=== PATIENT | male | born 1960 | race Caucasian/White ===

== ENCOUNTER 2024-08-31 02:58 | Outpatient (CLI) | payer MEDICARE, OTHER, SELFPAY ==
--- NOTE | 2024-08-31 08:00 | DI.RAD_ITS ---
Exam(s) XR ANKLE RT COMPLETE EXAM: XR ANKLE RT COMPLETE CLINICAL HISTORY: Right ankle pain,m25.571. TECHNIQUE: 2D digital imaging was performed. Three views. COMPARISON: CR XR FOOT COMPLETE MIN 3V RT from 12/19/2023 FINDINGS: BONES: There is a nondisplaced fracture through the lateral talar dome without significant displacement. There is an underlying lucency. The remainder of talar dome is unremarkable. There is additional lucency in the anterior tibial plafond tear this appears chronic. No bony destructive lesion is seen. JOINTS: The ankle mortise is normally aligned. No joint space narrowing. SOFT TISSUE: Marked soft tissue swelling of the lower extremity, greatest around the malleoli. Mild vascular calcification. Calcification in the distal Achilles tendon. IMPRESSION: Nondisplaced osteochondral fracture at the lateral talar dome. DATA REPOSITORY: RADIATION DOSE DELIVERED:
--- NOTE | 2024-08-31 08:00 | DI.RAD_ITS ---
Exam(s) XR FOOT RT COMPLETE EXAM: XR FOOT RT COMPLETE CLINICAL HISTORY: Right foot pain,m79.671. TECHNIQUE: 2D digital imaging was performed. Three views. COMPARISON: CR XR FOOT COMPLETE MIN 3V RT from 12/19/2023 FINDINGS: BONES: No acute fracture is present. No bony destructive lesion is seen. Small spur at the Achilles insertion. JOINTS: No dislocation present. There are mild degenerative changes of the 1st MTP joint. SOFT TISSUE: Normal edema of the ankle and foot. IMPRESSION: Mild degenerative changes. DATA REPOSITORY: RADIATION DOSE DELIVERED:
== END 2024-08-31 03:18 ==
PROVIDERS: PCP Family Medicine; Visit Provider Podiatrist
DX: S92.141A Displaced dome fracture of right talus, initial encounter for closed fracture (principal); W11.XXXA Fall on and from ladder, initial encounter; I87.2 Venous insufficiency (chronic) (peripheral); R60.0 Localized edema; I83.93 Asymptomatic varicose veins of bilateral lower extremities; L65.9 Nonscarring hair loss, unspecified
CPT/HCPCS: 29580; 99204; 29850; 73610; 73630

== ENCOUNTER → 2024-09-22 15:07 | Outpatient (BNVA) | payer MEDICARE, OTHER, SELFPAY | PROVIDERS: PCP Family Medicine; Referring Provider Family Medicine; Visit Provider Podiatrist | DX: M25.571 Pain in right ankle and joints of right foot (principal); M89.8X7 Other specified disorders of bone, ankle and foot; M94.8X7 Other specified disorders of cartilage, ankle and foot; I87.2 Venous insufficiency (chronic) (peripheral); R60.0 Localized edema | CPT/HCPCS: 99213 ==

== ENCOUNTER → 2024-10-20 14:19 | Outpatient (BNVA) | payer MEDICARE, OTHER, SELFPAY | PROVIDERS: PCP Family Medicine; Referring Provider Family Medicine; Visit Provider Podiatrist | DX: M25.571 Pain in right ankle and joints of right foot (principal); M89.8X7 Other specified disorders of bone, ankle and foot; M24.171 Other articular cartilage disorders, right ankle; I87.2 Venous insufficiency (chronic) (peripheral); R60.0 Localized edema | CPT/HCPCS: 99213 ==

== ENCOUNTER → 2024-11-14 14:32 | Outpatient (BNVA) | payer MEDICARE, OTHER, SELFPAY | PROVIDERS: PCP Family Medicine; Referring Provider Family Medicine; Visit Provider Podiatrist | DX: L60.0 Ingrowing nail (principal); M25.571 Pain in right ankle and joints of right foot; I87.2 Venous insufficiency (chronic) (peripheral); R60.0 Localized edema | CPT/HCPCS: 11750 ==

== ENCOUNTER → 2024-12-06 13:15 | Outpatient (BNVA) | payer MEDICARE, OTHER, SELFPAY | PROVIDERS: PCP Family Medicine; Referring Provider Family Medicine; Visit Provider Podiatrist | DX: M25.571 Pain in right ankle and joints of right foot (principal); R60.0 Localized edema; L60.0 Ingrowing nail; I87.2 Venous insufficiency (chronic) (peripheral); M24.171 Other articular cartilage disorders, right ankle | CPT/HCPCS: 99213 ==

== ENCOUNTER → 2025-01-03 13:33 | Outpatient (BNVA) | payer MEDICARE, OTHER, SELFPAY | PROVIDERS: PCP Family Medicine; Referring Provider Family Medicine; Visit Provider Podiatrist | DX: M25.571 Pain in right ankle and joints of right foot (principal); I87.2 Venous insufficiency (chronic) (peripheral); M89.8X7 Other specified disorders of bone, ankle and foot; R60.0 Localized edema; L60.0 Ingrowing nail; R03.0 Elevated blood-pressure reading, without diagnosis of hypertension | CPT/HCPCS: 99213 ==

== ENCOUNTER 2025-01-03 14:03 | Emergency (ER) | payer MEDICARE, OTHER, SELFPAY ==
[2025-01-03 14:14] VITALS: BP 191/83; PULSE 64; RESP 14; TEMP 36.7; O2SAT 97
--- NOTE | 2025-01-03 14:56 | W.ED.GENAD ---
Discharge Plan Disposition Patient Disposition: Home Condition: Stable Discharge Details Clinical Impression: Hypertension Primary Care Provider: Sy Rey ED Provider: Vanna Turpin Home Meds and New Rx's Prescriptions: No Action pramipexole 1 mg tablet 1 mg PO TID carvedilol 6.25 mg tablet 6.25 mg PO BID Rx Instructions: must administer with a meal/food nitroglycerin 0.4 mg tablet, sublingual 0.4 mg sublingual Q5M PRN Rx Instructions: do not exceed 3 doses per episode aspirin 81 mg tablet 81 mg PO DAILY furosemide [Lasix] 20 mg tablet 20 mg PO DAILY tadalafil [Cialis] 20 mg tablet 20 mg PO DAILY PRN Rx Instructions: administer approximately 30min before sexual activity; do not use more than 1 dose per 24hrs mecobalamin (vitamin B12) 500 mcg tablet,chewable PO carbidopa-levodopa 25-250 mg tablet 1 tab PO TID [id number].[id number], herbs Capsule 1 cap PO Rx Instructions: brain formula OTC neomycin-polymyxin B-dexameth [Maxitrol] 3.5mg/mL-10,000 unit/mL-0.1 % drops,suspension See Rx Instructions .Route Q12H Qty: 5 0RF Rx Instructions: Apply to the toe every 12 hours; Apply to the TOE. Do NOT apply to eyes. Discard once the toe is healed. Discharge Instructions Instructions: High Blood Pressure ED Additional Instructions: You were seen in the emergency department today for evaluation of an elevated blood pressure reading that was incidentally noted at one of your appointments. In our department you had a full physical examination performed, and you had no symptoms at this time of stroke, heart attack, or other concerning findings as a result of your blood pressure. As we discussed, management of blood pressure is important, as long-term high blood pressure can lead to adverse health effects. You are prescribed medications which you should continue to take for your blood pressure, and should monitor your blood pressure at home. Please contact your primary care provider in the next few days to discuss this visit and any symptoms that change, worsen, or persist. If you were to develop symptoms such as chest pain, headache, vision changes, or numbness or weakness of 1 part of your body, you need to return to an emergency department for reevaluation. Thank you for allowing us to be part of your care. Stand Alone Forms: Portal Information HPI General Mode of arrival: ambulatory. Date/Time Provider Initiated Documentation: 01/03/25 14:23. Limitations to Documentation: no limitations. Information obtained by: patient and old records reviewed. HPI Narrative: This is a 64-year-old male patient with a past medical history significant for Parkinson's disease, SANG, who was sent from podiatry for an elevated blood pressure. The patient reports that he was being seen for an ingrown toenail, states that he monitors his blood pressure at home and typically runs in the 150s. He reports that he is currently asymptomatic, and felt very slowly coming over here to be evaluated. He specifically denies headache, vision changes, chest pain, and missed doses of medications. The patient reports that he follows with his primary care provider in the [facility] system. Patient denies new leg swelling, changes to his medication dosing, currently taking carvedilol, and Lasix. Related Data Home Medications Medication Instructions Recorded Confirmed aspirin 81 mg tablet 81 mg PO DAILY 08/26/24 01/03/25 carvedilol 6.25 mg tablet 6.25 mg PO BID 08/26/24 01/03/25 furosemide 20 mg tablet (Lasix) 20 mg PO DAILY 08/26/24 01/03/25 mecobalamin (vitamin B12) 500 mcg mcg PO 08/26/24 01/03/25 chewable tablet nitroglycerin 0.4 mg sublingual 0.4 mg sublingual Q5M PRN 08/26/24 01/03/25 tablet pramipexole 1 mg tablet 1 mg PO TID 08/26/24 01/03/25 tadalafil 20 mg tablet (Cialis) 20 mg PO DAILY PRN 08/26/24 01/03/25 carbidopa 25 mg-levodopa 250 mg 1 tab PO TID 08/31/24 01/03/25 tablet dcjabk-tczzsb-D.ginseng, herbs 1 cap PO 08/31/24 01/03/25 capsule [id number]-dvnftvfcg-hkwqqopv 3.5 See Rx Instructions .Route Q12H #5 11/14/24 01/03/25 mg/mL-10,000 unit/mL-0.1% eye mL drops (Maxitrol) Previous Rx's Medication Instructions Recorded [email or web address] See Rx Instructions .Route Q12H #5 11/14/24 mg/mL-10,000 unit/mL-0.1% eye mL drops (Maxitrol) Allergies Allergy/AdvReac Type Severity Reaction Status Date / Time latex Allergy Unknown Verified 01/03/25 14:23 General Stated Complaint: GenMedical YA: 4 Exam Narrative Exam Narrative: Gen: awake and alert, in no apparent distress. Appears well nourished. HEENT: PERRL, EOMs full and without nystagmus. External ears and nose normal, mucous membranes moist. Neck: Supple, full range of motion, no observable masses Lungs: No increased work of breathing, lung sounds clear and equal bilaterally without wheezes, rhonchi, or rales. CV: Heart with regular rate and rhythm, no murmurs auscultated. Strong and symmetrical radial pulses. Abdomen: Soft, nondistended, non-tender to palpation. No rigidity, rebound tenderness, or guarding. MSK: No joint swelling, no redness. Full ROM without limitation, no external traumatic findings. Skin: No rashes or lesions to visualized skin. Normal color, warm, and dry. Neuro: Cranial nerves II-XII intact and symmetrical bilaterally. 5/5 strength in all muscle groups x4 extremities. No sensory deficits. Ambulates with steady gait. Tremor noted consistent with the patient's diagnosis of Parkinson's Psych: Appropriate for situation. Course Vital Signs Vital signs: Vital Signs Temperature 36.7 C 01/03/25 14:14 Pulse 64 01/03/25 14:14 Respiratory Rate 14 01/03/25 14:14 Blood Pressure 191/83 H 01/03/25 14:14 Pulse Oximetry 97 01/03/25 14:14 Temperature 36.7 C 01/03/25 14:14 Temperature Source Oral 01/03/25 14:14 Pulse 64 01/03/25 14:14 Respiratory Rate 14 01/03/25 14:14 Blood Pressure 191/83 H 01/03/25 14:14 Blood Pressure Position Sitting 01/03/25 14:14 Pulse Oximetry 97 01/03/25 14:14 Oxygen Delivery Method Room Air 01/03/25 14:14 Oxygen Flow Rate 0 01/03/25 14:14 Pain Level 0 01/03/25 14:14 Medical Decision Making This is a 64-year-old male patient presenting for evaluation of elevated blood pressure. Reassuringly, the patient is asymptomatic at this time. Differentials include but are not limited to essential hypertension, whitecoat syndrome, I certainly considered emergent pathology such as hypertensive emergency, ACS, kidney injury, CVA, intracranial hemorrhage, etc., but the patient is without physical exam evidence nor symptoms to suggest same. I had an extended discussion with the patient regarding workup that could be done in our emergency department, ultimately the patient is not desiring of any workup and I do not feel that any is emergently indicated at this time. I recommended that the patient check his blood pressure at home and monitor these numbers, and reach out to his primary care provider in the next day to discuss this visit and any symptoms that change, worsen, or persist. I do notice that the patient's blood pressure was improving at the time of discharge, 171/76 down from an initial 191/83, which is quite reassuring. At this time, the patient has had a full medical evaluation and is safe for discharge to home. They are hemodynamically stable, ambulatory, and tolerating PO. They are understanding of the follow-up plan and return precautions. They left our facility without incident. Vanna Turpin MD [facility] All Active Problems (Updated 01/03/25 @ 14:57 by Vanna Turpin MD) Hypertension (Chronic) Ingrown toenail of right foot (Acute) Edema (Acute) Venous insufficiency (Acute) Pain in right ankle and joints of right foot (Acute) Osteochondral lesion of talar dome (Acute) Nocturia (Acute) Obstructive sleep apnea (Chronic) Parkinson disease (Chronic) Memory impairment (Acute) Obesity (Chronic) Erectile dysfunction (Acute) Social History Smoking/Tobacco Use Status: Never Smoking risk assessment performed?: Yes Alcohol Intake: current Substance use type: does not use Do you feel safe at home: Yes Do you feel safe in your relationship?: Yes
[2025-01-03 15:26] VITALS: BP 171/76; PULSE 67; RESP 18; TEMP 36.7; O2SAT 99
== END 2025-01-03 15:30 | disposition home or self-care (01) ==
PROVIDERS: Emergency Provider Emergency Medicine; PCP Family Medicine
DX: Z71.1 Person with feared health complaint in whom no diagnosis is made (principal); I10 Essential (primary) hypertension
CPT/HCPCS: 99282; 99281; 99213